=== PATIENT | male | born 2000 | race Caucasian/White ===

== ENCOUNTER 2019-03-03 22:30 | Emergency (ER) | payer OTHER ==
--- OUTSIDE RECORDS SUMMARY | 2019-03-03 22:47 | XMS REPORT | Continuity of Care Document ---
:2000 External Reference #:[id number] Author Name Eris Soliz M.D. Address [address] [place] [address] Care Team Providers Name Role Phone Eris Soliz M.D. Primary Care Physician Unavailable Payers Date Identification Numbers Payment Provider Subscriber Effective: 2013 Policy Number: [id number] [facility] Wei Gibbons PayID: [id number] [address] [place] [address] Problems Description No Active Problems Family History Date Family Member(s) Observation Comments Father No Current Problems Mother Hypertension Mother Ovarian Cyst Mother Breast Cancer First Brother Hypertension Grandfather Hypertension Grandfather due to Heart Attack () Grandmother Hypertension Grandmother Diabetes Paternal Grandfather due to Liver Disease () Paternal Grandfather due to Alcoholism () Paternal Grandmother Seizure Disorder Maternal Grandfather due to Heart Attack () Maternal Grandfather due to Hypertension () Maternal Grandmother Hypertension Maternal Grandmother Diabetes Paternal Uncles Hypertension Paternal Uncles Unknown Maternal Uncles Diabetes Maternal Uncles Kidney Disease Aunt Hypertension Paternal Aunts No Current Problems Maternal Aunts Hypertension First Paternal Cousin No Current Problems Second Paternal Cousin No Current Problems First Maternal Cousin No Current Problems Second Maternal Cousin No Current Problems Third Maternal Cousin Oxcws-3-Avrjlrxjpve Deficiency Fourth Maternal Cousin Ksvgw-2-Gjbzflbbbun Deficiency Social History Type Date Description Comments Sex Unknown Lives With Grandmother Tobacco Use Start: Unknown Never Smoked Cigarettes ETOH Use Rarely consumes alcohol Tobacco Use Start: Unknown Patient has never smoked Recreational Drug Use Regularly uses 1-2 times a a week Marijuana Tobacco Use Start: Unknown Exposure To Second-Hand Smoke Smoking Status Reviewed: 12/22/18 Exposure To Second-Hand Smoke Currently Active Patient is currently sexually active Condom Use Always # Partners in a Lifetime 1 Allergies, Adverse Reactions, Alerts Description No Known Drug Allergies Medications Active Medications SIG Qnty Indications Ordering Provider Date No Active Medications Unknown 10/10/2015 History Medications Azithromycin take 2 tabs by 6tabs 482.9 Elda Bird NP 10/31/2014 - 250mg mouth today; then 10/09/2015 Tablets 1 tab by mouth daily for the next 4 days Proair HFA 2 puffs q4-6 1units 482.9 Elda Bird NP 10/31/2014 - 108(90Base) hours as needed 10/09/2015 mcg/Act Aerosol for wheeze Aerochamber Plus please dispense 1units 482.9 Elda Bird NP 10/31/2014 - Misc one spacer to use 10/09/2015 with inhaler- No Active Medications Unknown 10/04/2014 - 10/31/2014 Medications Administered in Office Medication SIG Qnty Indications Ordering Provider Date Immunization Administration Nursing 07/26/2018 Single Or Combination Injection Immunization Administration Nursing 10/06/2017 Single Or Combination Injection Immunization Administration Eris Soliz M.D. 10/13/2016 Single Or Combination Injection Immunization Adminstration 2+ JAMES Sharif 10/10/2015 Single Or Combination Injection Immunization Administration JAMES Sharif 10/10/2015 Single Or Combination Injection Immunization Administration Nursing 07/12/2014 Single Or Combination Injection Immunizations CPT Code Status Date Vaccine Lot # [id number] Given 07/26/2018 Flu Quadrivalent [id number] 32994 Given 10/06/2017 Flu Quadrivalent [id number] 09777 Given 10/13/2016 Flu Quadrivalent [id number] 86184 Given 10/10/2015 Menactra [id number] 71954 Given 10/10/2015 Flu Quadrivalent [id number] 84850 Given 07/12/2014 Flu Quadrivalent [id number] 84813 Given 08/31/2012 Influenza Virus Vaccine, Split Virus, 6-35 Months Age Intramuscul 90424 Given 08/31/2012 Gardasil 07422 Given 10/13/2011 Gardasil 60559 Given 08/26/2011 Gardasil 88637 Given 08/26/2011 Influenza Virus Vaccine Intranasal 66150 Given 06/11/2010 Influenza Virus Vaccine Intranasal 97498 Given 07/17/2009 Tdap 98470 Given 06/20/2009 Varicella (Chicken Pox) Vaccine 68172 Given 06/20/2009 Influenza Virus Vaccine Intranasal 43609 Given 07/17/2008 Menactra 97128 Given 07/17/2008 Influenza Virus Vaccine Intranasal 66092 Given 07/17/2008 Hepatitis A Pediatric 69153 Given 08/12/2007 Influenza Virus Vaccine, Split Virus, 6-35 Months Age Intramuscul 43963 Given 07/12/2007 Hepatitis A Pediatric 43105 Given 07/12/2007 Influenza Virus Vaccine, Split Virus, 6-35 Months Age Intramuscul 95885 Given 06/10/2004 Polio Injectable 82213 Given 06/10/2004 MMR Vaccine, Live, For Subcutaneous Use 71127 Given 06/10/2004 DTaP Vaccine Younger Than 7 86652 Given 04/08/2000 DTaP Vaccine Younger Than 7 92455 Given 04/08/2000 Hib Vaccine 99355 Given 01/09/2000 Varicella (Chicken Pox) Vaccine 56260 Given 01/09/2000 Polio Injectable 16841 Given 01/09/2000 MMR Vaccine, Live, For Subcutaneous Use 09049 Given 07/09/1999 Hib Vaccine 05215 Given 07/09/1999 DTaP Vaccine Younger Than 7 22848 Given 07/09/1999 Hepatitis B Vaccine Pediatric/Adolescent 43785 Given 03/21/1999 Polio Injectable 96200 Given 03/21/1999 DTaP Vaccine Younger Than 7 02460 Given 03/21/1999 Hib Vaccine 74862 Given 01/20/1999 Polio Injectable 59083 Given 01/20/1999 DTaP Vaccine Younger Than 7 29228 Given 01/20/1999 Hib Vaccine 88693 Given 2000 Hepatitis B Vaccine Pediatric/Adolescent 72626 Given 1998 Hepatitis B Vaccine Pediatric/Adolescent Vital Signs Date Vital Result Comment 02/28/2019 10:43am Body Temperature 98.8 F Heart Rate 100 /min Respiratory Rate 20 /min BP Systolic 120 mmHg BP Diastolic 70 mmHg Weight 233.00 lb Weight 105.689 kg 12/22/2018 11:27am Body Temperature 98.5 F Heart Rate 65 /min Respiratory Rate 12 /min BP Systolic 147 mmHg BP Diastolic 84 mmHg Weight 234.69 lb Weight 106.454 kg Height 74.5 inches 6'2.50" BMI (Body Mass Index) 29.7 kg/m2 10/19/2018 9:10am Body Temperature 98.7 F Heart Rate 68 /min Respiratory Rate 14 /min BP Systolic 140 mmHg manual 124/82 BP Diastolic 78 mmHg manual 124/82 Weight 239.62 lb Weight 108.694 kg Height 74.5 inches 6'2.50" BMI (Body Mass Index) 30.4 kg/m2 Body Mass Index Percentile 95 % Height Percentile 96 % Weight Percentile >9711/10/2017 11:28am Body Temperature 97.5 F Heart Rate 78 /min Respiratory Rate 18 /min BP Systolic 138 mmHg BP Diastolic 70 mmHg Weight 230.00 lb Weight 104.328 kg Weight Percentile >9710/19/2017 9:31am Body Temperature 98.8 F Heart Rate 74 /min Respiratory Rate 16 /min BP Systolic 137 mmHg BP Diastolic 88 mmHg BP Systolic Recheck 138 mmHg BP Diastolic Recheck 83 mmHg Blood Pressure Percentile 85 % Weight 225.75 lb Weight 102.400 kg Height 74 inches 6'2" BMI (Body Mass Index) 29.0 kg/m2 Body Mass Index Percentile 94 % Height Percentile 95 % Weight Percentile >9705/20/2017 9:13am Body Temperature 97.6 F Heart Rate 88 /min Respiratory Rate 18 /min BP Systolic 140 mmHg BP Diastolic 76 mmHg Blood Pressure Percentile 0 % Weight 229.25 lb Weight 103.988 kg Weight Percentile >9704/14/2017 8:58am Body Temperature 98.7 F Heart Rate 76 /min Respiratory Rate 14 /min BP Systolic 148 mmHg BP Diastolic 87 mmHg BP Systolic Recheck 140 mmHg BP Diastolic Recheck 92 mmHg Blood Pressure Percentile 0 % Weight 225.00 lb Weight 102.060 kg Weight Percentile >9703/09/2017 8:21am Body Temperature 98.6 F Heart Rate 62 /min Respiratory Rate 12 /min BP Systolic 142 mmHg BP Diastolic 89 mmHg BP Systolic Recheck 134 mmHg BP Diastolic Recheck 80 mmHg Blood Pressure Percentile 94 % Weight 233.00 lb Weight 105.689 kg Height 74 inches 6'2" BMI (Body Mass Index) 29.9 kg/m2 Body Mass Index Percentile 96 % Height Percentile 95 % Weight Percentile >9702/17/2017 9:32am Body Temperature 98.2 F Heart Rate 58 /min Respiratory Rate 12 /min BP Systolic 146 mmHg Right Arm Manual BP Diastolic 80 mmHg Right Arm Manual BP Systolic Recheck 140 mmHg Left Arm Manual BP Diastolic Recheck 86 mmHg Left Arm Manual Blood Pressure Percentile 0 % Weight 231.19 lb Weight 104.867 kg Weight Percentile >97th 01/13/2017 10:44am Body Temperature 98.2 F Heart Rate 67 /min Respiratory Rate 12 /min BP Systolic 138 mmHg BP Diastolic 86 mmHg Blood Pressure Percentile 0 % Weight 230.38 lb Weight 104.498 kg Height 74 inches 6'2" BMI (Body Mass Index) 29.6 kg/m2 Body Mass Index Percentile 96 % Height Percentile 95 % Weight Percentile >97th 10/13/2016 9:31am Body Temperature 98.1 F Heart Rate 83 /min Respiratory Rate 14 /min BP Systolic 142 mmHg BP Diastolic 81 mmHg BP Systolic Recheck 136 mmHg BP Diastolic Recheck 80 mmHg Blood Pressure Percentile 95 % Weight 226.56 lb Weight 102.769 kg Height 74 inches 6'2" BMI (Body Mass Index) 29.1 kg/m2 Body Mass Index Percentile 95 % Height Percentile 95 % Weight Percentile >97th 10/10/2015 10:09am Body Temperature 98.0 F Heart Rate 82 /min Respiratory Rate 12 /min BP Systolic 137 mmHg BP Diastolic 82 mmHg Blood Pressure Percentile 91 % Weight 221.50 lb Weight 100.472 kg Height 73.5 inches 6'1.50" BMI (Body Mass Index) 28.8 kg/m2 Body Mass Index Percentile 96 % Height Percentile 95 % Weight Percentile >97th 09/11/2015 12:00am Body Temperature 99.7 F Heart Rate 103 /min Respiratory Rate 20 /min BP Systolic 137 mmHg BP Diastolic 67 mmHg Weight 213.00 lb Weight 96.615 kg O2 % BldC Oximetry 98 % 11/02/2014 10:10am Body Temperature 98.6 F Heart Rate 80 /min Respiratory Rate 16 /min BP Systolic 130 mmHg BP Diastolic 70 mmHg Blood Pressure Percentile 82 % Weight 200.50 lb Weight 90.947 kg Height 73 inches 6'1" BMI (Body Mass Index) 26.4 kg/m2 Body Mass Index Percentile 93 % O2 % BldC Oximetry 99 % Height Percentile 95 % Weight Percentile >97th 10/31/2014 2:42pm Body Temperature 99.8 F Heart Rate 88 /min Respiratory Rate 20 /min BP Systolic 150 mmHg done x2 BP Diastolic 64 mmHg done x2 BP Systolic Recheck 140 mmHg BP Diastolic Recheck 68 mmHg Blood Pressure Percentile 99 % Weight 204.12 lb Weight 92.591 kg Height 73 inches 6'1" BMI (Body Mass Index) 26.9 kg/m2 Body Mass Index Percentile 94 % Height Percentile 95 % Weight Percentile >97th 10/04/2014 1:55pm Body Temperature 98.7 F Heart Rate 92 /min Respiratory Rate 16 /min BP Systolic 134 mmHg BP Diastolic 81 mmHg Blood Pressure Percentile 90 % Weight 202.69 lb Weight 91.939 kg Height 73 inches 6'1" BMI (Body Mass Index) 26.7 kg/m2 Body Mass Index Percentile 94 % Height Percentile 96 % Weight Percentile >97th 10/04/2013 11:00am Heart Rate 82 /min Respiratory Rate 14 /min BP Systolic 128 mmHg BP Diastolic 68 mmHg Weight 181.75 lb Weight 82.440 kg Height 72.25 inches 10/12/2012 11:00am Body Temperature 96.8 F Heart Rate 76 /min Respiratory Rate 18 /min BP Systolic 102 mmHg BP Diastolic 72 mmHg Weight 156.00 lb Weight 70.760 kg 08/31/2012 11:00am Body Temperature 99.2 F Heart Rate 72 /min Respiratory Rate 20 /min BP Systolic 106 mmHg BP Diastolic 78 mmHg Weight 146.00 lb Weight 66.224 kg Height 68.25 inches 08/22/2012 11:00am Heart Rate 70 /min Respiratory Rate 20 /min BP Systolic 108 mmHg BP Diastolic 70 mmHg Weight 150.25 lb Weight 68.152 kg 08/26/2011 11:00am Heart Rate 70 /min Respiratory Rate 14 /min BP Systolic 130 mmHg BP Diastolic 78 mmHg Weight 137.00 lb Weight 62.142 kg Height 65.5 inches 11/19/2010 11:00am Heart Rate 102 /min Respiratory Rate 18 /min BP Systolic 110 mmHg BP Diastolic 70 mmHg Weight 120.38 lb Weight 54.599 kg 07/30/2010 11:00am Heart Rate 78 /min Respiratory Rate 16 /min BP Systolic 118 mmHg BP Diastolic 78 mmHg Weight 116.38 lb Weight 52.798 kg Height 62.75 inches 06/11/2010 12:00pm Heart Rate 90 /min Respiratory Rate 16 /min BP Systolic 126 mmHg BP Diastolic 80 mmHg Weight 117.94 lb Weight 53.501 kg Height 62.25 inches 07/17/2009 11:00am Heart Rate 82 /min Respiratory Rate 16 /min BP Systolic 120 mmHg BP Diastolic 80 mmHg Weight 94.81 lb Weight 43.001 kg Height 60.25 inches 06/20/2009 12:00pm Heart Rate 88 /min Respiratory Rate 24 /min BP Systolic 120 mmHg BP Diastolic 76 mmHg Weight 94.75 lb Weight 42.978 kg 08/14/2008 11:00am Heart Rate 104 /min Respiratory Rate 12 /min BP Systolic 120 mmHg BP Diastolic 60 mmHg Weight 84.75 lb Weight 38.442 kg 07/17/2008 11:00am Heart Rate 92 /min Respiratory Rate 18 /min BP Systolic 108 mmHg BP Diastolic 74 mmHg Weight 78.75 lb Weight 35.720 kg Height 58 inches 03/01/2008 12:00pm Heart Rate 96 /min Respiratory Rate 20 /min BP Systolic 100 mmHg BP Diastolic 60 mmHg Weight 82.50 lb Weight 37.421 kg 02/21/2008 12:00pm Heart Rate 88 /min Respiratory Rate 16 /min BP Systolic 100 mmHg BP Diastolic 64 mmHg Weight 84.50 lb Weight 38.329 kg 07/12/2007 12:00pm Heart Rate 72 /min Respiratory Rate 12 /min BP Systolic 90 mmHg BP Diastolic 60 mmHg Weight 73.50 lb Weight 33.339 kg Height 56 inches 06/30/2006 12:00pm Heart Rate 88 /min Respiratory Rate 16 /min BP Systolic 102 mmHg BP Diastolic 58 mmHg Weight 65.50 lb Weight 29.710 kg Height 53 inches Results Test Date Facility Test Result H/L Range Note .Urinalysis DIP 02/28/2019 [facility] Ua Color yellow Only [address] [place] [address] [phone] Ua Clarity clear Ua Glucose negative Ua Bilirubin negative Ua Ketones negative Ua Specific [place] 1.010 Ua Blood Qual negative Ua PH Test Strip 6.0 Ua Protein negative Ua Urobilinogen negative Ua Nitrate negative Ua Leukocytes negative Laboratory test 02/19/2017 [facility] Alpha 1 92 mg/dL Abnormal 100 - [address] Antitrypsin A1a [address] [place] [address] Hepatitis C Antibody Nonreactive N Nonreactive Hepatitis B Surface Ag Nonreactive N Nonreactive Liver Function Panel 02/19/2017 [facility] Total Protein 7.3 g/ dL N 6.4-8.[address] [place] [address] Albumin 4.8 g/dL N 3.2-5.2 Globulin 2.5 g/dL N 2-4 Albumin/Globulin Ratio 1.9 N 1-3 Total Bilirubin 0.50 mg/dL N 0.2-1.0 Direct Bilirubin 0.10 mg/dL N 0.03-0.18 Indirect Bilirubin 0.4 mg/dL N 0.3-1.0 Alkaline Phosphatase 92 U/L N 34-104 Alt 87 U/L High 7- Ast 45 U/L High 13-39 Lipid Profile 01/14/2017 [facility] Triglycerides 356 mg/dL N 2 (Trig/Chol/HDL) [address] [place] [address] Cholesterol 202 mg/dL N 3 HDL Cholesterol 32.6 mg/dL N 4 LDL Cholesterol 98 mg/dL N 5 Comp Metabolic Panel 01/14/2017 [facility] Sodium 137 mmol/L N 133-145 [address] [place] [address] Potassium 4.5 mmol/L N 3.5-5.0 Chloride 103 mmol/L N 101-111 Co2 Carbon Dioxide 29 mmol/L N 22-32 Anion Gap 5 mmol/L N 2-11 Glucose 96 mg/dL N 70-100 Blood Urea Nitrogen 9 mg/dL N 6-24 Creatinine 0.84 mg/dL N 0.67-1.17 BUN/Creatinine Ratio 10.7 N 8-20 Calcium 10.3 mg/dL N 8.6-10.3 Total Protein 7.4 g/dL N 6.4-8.9 Albumin 4.9 g/dL N 3.2-5.2 Globulin 2.5 g/dL N 2-4 Albumin/Globulin Ratio 2.0 N 1-3 Total Bilirubin 0.50 mg/dL N 0.2-1.0 Alkaline Phosphatase 92 U/L N 34-104 Alt 132 U/L High 7 Ast 74 U/L High 13-39 Egfr Non- 119.0 N >60 Egfr 153.1 N >60 6 Laboratory test 01/14/2017 [facility] Free T4 (Free 0.67 ng/dL N 0.61-1.12 finding [address] [facility] [place]roxine) [place] [address] TSH (Thyroid Stim Horm) 3.20 mcIU/mL N 0.34-5.60 Renin 0.7 ng/mL/h N 7 Order 01/13/2017 [facility] EKG <pending> [address] [place] [address] [phone] Laboratory 09/11/2015 [facility] Rapid Strep SEE RESULT 8 test finding [address] [place] [address] Laboratory 09/11/2015 [facility] Rapid Strep POSITIVE Abnormal Negative 9 test finding [address] [place] [address] Order 11/02/2014 [facility] Oximetry - 99 Pulse or Ear Laboratory 11/01/2014 [facility] .Quick Strep negative test finding [address] [place] [address] [phone] .Culture Throat negative Order 10/31/2014 [facility] Nebulizer/Inhaler Training complete Order 10/31/2014 [facility] Nebulizer Treatment complete Oximetry - Pulse or Ear 100 Laboratory test 08/22/2012 [facility] Influenza Virus negative finding Culture (Rapid) 1 Test Performed by: [address] [address] 2 Desirable <150 Borderline high 150-199 High 200-499 Very High >500 3 Desirable <200 Borderline high 200-239 High >239 4 Low <40 Desirable: 40-60 High: >60 5 Desirable: <100 mg/dL Near Optimal: 100-129 mg/dL Borderline High: 130-159 mg/dL High: 160-189 mg/dL Very High: >189 mg/dL 6 Because ethnic data is not always readily available, this report includes an eGFR for both -Americans and non- Americans. The National Kidney Disease Education Program (NKDEP) does not endorse the use of the MDRD equation for patients that are not between the ages of 18 and 70, are , have extremes of body size, muscle mass, or nutritional status, or are non- or non-. According to the National Kidney Foundation, irrespective of diagnosis, the stage of the disease is based on the level of kidney function: Stage Description GFR(mL/min/1.73 m(2)) 1 Kidney damage with normal or decreased GFR 90 2 Kidney damage with mild decrease in GFR 60-89 3 Moderate decrease in GFR 30-59 4 Severe decrease in GFR 15-29 5 Kidney failure <15 (or dialysis) 7 REFERENCE VALUE (Peripheral vein specimen) Na-deplete, upright: Mean: 10.8 Range: 2.9-24 Na-replete, upright: Mean: 1.9 Range: < or=0.6-4.3 ADDITIONAL INFORMATION Testing performed by Liquid Chromatography-Tandem Mass Spectrometry (LC-MS/MS). This test was developed and its performance characteristics determined by [facility] in a manner consistent with CLIA requirements. This test has not been cleared or approved by the U.S. Food and Drug Administration. Test Performed by: [facility] [employer] [address] [address] 8 SEE RESULT BELOW Name: GIBBONSWEI Haley : [address]: Tim Mccollum III Acct: [id number] Unit: [id number] AGE: 14 Location: [facility] Re09/11/15 SEX: M Status: REG ER SPEC: [id number] BRANDEN: 09/11/[address]: Tim Mccollum III, MD REQ: [id number] RECD: 09/11/15 STATUS: COMP [facility] DR: Eris Snedeker MD _ SOURCE: THROAT SPDESC: ORDERED: Strep A Request Procedure Result Reported Site Rapid Strep A Request Final 09/11/15- 1850 ML Specimen received for Rapid Strep A Molecular testing * ML - MAIN LAB ([facility]) . END OF REPORT * ML=Testing performed at Main Lab DEPARTMENT OF PATHOLOGY, [address] [place] [address] Rivas Camargo M.D. Director [facility] # [id number] 9 Geological Aide: [id number] SHIVAM HILL The utility aide and regulatory agencies both recommend that a throat culture for beta strep be performed if a Rapid Group A Strep assay yields a negative result. Therefore a culture will be automatically performed on all negative samples. Procedures Date Code Description Status 10/19/2018 21165 Vision Screening Completed 10/19/2018 49511 Admin Patient Focused Health Risk Assessment Instrument Completed 10/19/2018 16648 Brief Emotional/Behav Assessment W/ Scoring Doc Per Completed Standard Inst 10/19/2018 42731 Hearing Screen, Pure Tone, Air Completed 10/19/2017 46513 Vision Screening Completed 10/19/2017 69097 Admin Patient Focused Health Risk Assessment Instrument Completed 10/19/2017 21660 Brief Emotional/Behav Assessment W/ Scoring Doc Per Completed Standard Inst 10/19/2017 35186 Hearing Screen, Pure Tone, Air Completed 10/13/2016 03084 Collection Of Capillary Blood Specimen Completed 10/13/2016 75872 Hearing Screen, Pure Tone, Air Completed 10/13/2016 66725 Admin Patient Focused Health Risk Assessment Instrument Completed 10/13/2016 79246 Vision Screening Completed 10/10/2015 10422 Vision Screening Completed 10/10/2015 31757 Hearing Screen, Pure Tone, Air Completed 11/02/2014 71182 Pulse Oximetry Completed 10/31/2014 34345 Pulse Oximetry Completed 10/31/2014 94981 Inhaler/Nebulizer Training Completed 10/04/2014 09493 Vision Screening Completed 10/04/2014 60163 Hearing Screen, Pure Tone, Air Completed Encounters Type Date Location Provider Dx Diagnosis Office Visit 02/28/2019 10:15a [facility] LGORY Jimenes R36.1 Hematospermia N50.89 Other specified disorders of the male genital organs Office Visit 12/22/2018 11:00a [facility] Noelle Phan K08.89 Other specified RPA-C disorders of teeth and supporting structures Office Visit 10/19/2018 9:30a [facility] GLORY Jimenes Z00.00 Encntr for general adult medical exam w/o abnormal findings E66.3 Overweight Z71.89 Other specified counseling Z13.89 Encounter for screening for other disorder Office Visit 11/10/2017 11:45a [facility] Elda Bird NP K64.1 Second degree hemorrhoids M54.5 Low back pain Office Visit 10/19/2017 9:15a 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 deficiency K76.0 Fatty (change of) liver, not elsewhere classified E66.3 Overweight E78.2 Mixed hyperlipidemia R03.0 Elevated blood-pressure reading, w/o diagnosis of htn Office Visit 02/17/2017 9:30a [facility] R03.0 Elevated Leticia FayeDSameer blood-pressure reading, w/o diagnosis of htn E78.2 Mixed hyperlipidemia R74.8 Abnormal levels of other serum enzymes Office Visit 01/13/2017 11:15a [facility] R03.0 Elevated Laura Faye blood-pressure reading, w/o diagnosis of htn E66.3 Overweight Office Visit 10/13/2016 9:15a [facility] Eris Soliz, Z00.121 Encounter for M.D. routine child health exam w abnormal findings R03.0 Elevated blood-pressure reading, w/o diagnosis of htn Office Visit 10/10/2015 10:15a [facility] Noelle Phan, Z00.121 Encounter for RPA-C routine child health exam w abnormal findings H54.2 Low vision, both eyes Office Visit 11/02/2014 10:00a [facility] Noelle Phan, 482.9 Pneumonia Due To RPA-C Bacterial Infection Unspec Office Visit 10/31/2014 3:00p [facility] Elda Bird NP 786.2 Cough 462 Pharyngitis Acute 482.9 Pneumonia Due To Bacterial Infection Unspec Office Visit 10/04/2014 1:45p [facility] Riaz Landrum M.D. V20.2 Routine Infant Or Child Health Check v65.42 Counseling On Substance Use & Abuse Plan of Treatment Future Appointment(s):10/23/2019 1:45 pm - Eris Soliz M.D. at [facility]02/28/2019 - Yusef Yen, PAR36.1 MfbrvsdzrnmxhZ56.89 Other specified disorders of the male genital organsNew Xrays:Ultrasound Testicles-Inguinal, Scheduled: 03/01/19
[2019-03-04] MEDS ORDERED: Lidocaine 1%** 5 ML VIAL IM ONE (01:37)
[2019-03-04] MEDS ORDERED: cefTRIAXone VIAL(*) 250 MG VIAL IM ONE (01:37)
[2019-03-04] MEDS ORDERED: Azithromycin TAB* 250 MG PO ONE (01:38)
--- NOTE | 2019-03-04 01:45 | ED ---
GI/ HPI - HPI Summary HPI Summary: Pt is a 18 y/o M presenting to the ED with a chief complaint of burning with urination onset 03/03/19. He recently went to his physician for a lump in his testicles, who ordered an ultrasound. He also notes that his semen is brown. He denies penile discharge, abd pain, or edema of the testicles. He also states he uses a condom every time he has sex, and it is always with females. - History of Current Complaint Chief Complaint: EDUrogenitalProblems Time Seen by Provider: 03/04/19 01:31 Stated Complaint: UTI PER PT Hx Obtained From: Patient Onset/Duration: Started Hours Ago, Still Present Timing: Constant, Lasting Hours Severity: Moderate Current Severity: Moderate Pain Intensity: 7 Additional Locations for Males: Penis Pain Characteristics: Burning Associated Signs and Symptoms: Positive: UTI Symptoms. Negative: Abdominal Pain Additional Signs & Symptoms: Negative: Penile Discharge Aggravating Factor(s): Urination Alleviating Factor(s): Nothing - Allergy/Home Medications Allergies/Adverse Reactions: Allergies Allergy/AdvReac Type Severity Reaction Status Date / Time No Known Allergies Allergy Verified 09/11/15 18:02 PMH/Surg Hx/FS Hx/Imm Hx Previously Healthy: Yes Endocrine/Hematology History: Denies: Hx Diabetes Cardiovascular History: Denies: Hx Hypertension Infectious Disease History: No Infectious Disease History: Denies: Traveled Outside the [place] in Last 30 Days - Family History Known Family History: Negative: Cardiac Disease - Social History Alcohol Use: None Hx Substance Use: Yes Substance Use Type: Reports: Marijuana Substance Use Comment - Amount & Last Used: occasionally Hx Tobacco Use: No Smoking Status (MU): Never Smoked Tobacco Have You Smoked in the Last Year: No Review of Systems Negative: Abdominal Pain Positive: burning, other - brown semen, lump in testicle. Negative: discharge All Other Systems Reviewed And Are Negative: Yes Physical Exam - Summary Physical Exam Summary: Appearance: Well-appearing, Well-nourished, lying in bed comfortable Skin: Warm, dry, no obvious rash Eyes: sclera anicteric, no conjunctival pallor ENT: mucous membranes moist Neck: deferred Respiratory: No signs of respiratory distress Cardiovascular: Appears well perfused, pulses are nml Abdomen: deferred Musculoskeletal: Moving all 4 extremities without obvious discomfort Neurological: Awake and alert, mentation is normal, speech is fluent and appropriate Psychiatric: affect is normal, does not appear anxious or depressed Male : left varicocele, but no testicular masses on either side. No inguinal edema, no urethral discharge. Triage Information Reviewed: Yes Vital Signs On Initial Exam: Initial Vitals Temp Pulse Resp BP Pulse Ox 98.8 F 82 20 163/82 98 03/03/19 22:39 03/03/19 22:39 03/03/19 22:39 03/03/19 22:39 03/03/19 22:39 Vital Signs Reviewed: Yes Diagnostics - Vital Signs Vital Signs Temp Pulse Resp BP Pulse Ox 03/04/19 00:30 98.1 F 81 18 139/99 98 03/03/19 22:39 98.8 F 82 20 163/82 98 - Laboratory Lab Statement: Any lab studies that have been ordered have been reviewed, and results considered in the medical decision making process. GIGU Course/Dx - Course Course Of Treatment: Pt is a 18 y/o M presenting to the ED with a chief complaint of burning with urination onset 03/03/19. He denies penile discharge, abd pain, or edema of the testicles. He also states he uses a condom every time he has sex, and it is always with females. The pt's physical exam shows a L varicocele in the male portion, but there is no inguinal hernia or urethral discharge. I will be d/c'ing the pt with dx of urethritis, and instructions on taking his prescription at home. He is stable and agreeable with this plan. - Diagnoses Provider Diagnoses: Urethritis Discharge - Sign-Out/Discharge Documenting (check all that apply): Patient Departure Patient Received Moderate/Deep Sedation with Procedure: No - Discharge Plan Condition: Good Disposition: HOME Patient Education Materials: Nonspecific Urethritis in Men (ED) Referrals: Luciana Faye MD [Primary Care Provider] - (as scheduled) Additional Instructions: Your ultrasound showed a varicocele on the left, a common abnormality of the testicle that is usually not a big problem. I would have your PCP address this and consider a referral to a urologist if necessary. - Billing Disposition and Condition Condition: GOOD Disposition: Home - Attestation Statements Document Initiated by Scribe: Yes Documenting Scribe: Brianda Pérez Provider For Whom Scribe is Documenting (Include Credential): Leif Fry MD. Scribe Attestation: I, Brianda Pérez, scribed for Leif Fry MD. on 03/07/19 at 0748. Scribe Documentation Reviewed: Yes Provider Attestation: The documentation as recorded by the scribe, Brianda Pérez accurately reflects the service I personally performed and the decisions made by me, Leif Fry MD. Status of Scribe Document: Viewed
[2019-03-04 01:49] LABS: Urine Appearance Clear; Urine Bilirubin Negative (Negative); Urine Blood Negative (Negative); Urine Color Yellow; Urine Glucose Negative (Negative); Urine Ketones Negative (Negative); Urine Nitrite Negative (Negative); Urine Protein Negative (Negative); Urine Specific Gravity 1.024 (1.010-1.030); Urine Urobilinogen Negative (Negative)
[2019-03-04 02:08] VITALS: BP 146/82
--- NOTE | 2019-03-04 20:15 | PN ---
Progress Note - Progress Note Date of Service: 03/04/19 Note: Patient called stating his prescription medications had not made it to the pharmacy. Discussed patient with Dr. Bucio who stated patient had been treated with Rocephin and azithromycin here in the ED. No further treatment was necessary. Patient was advised he did not require prescription antibiotics. Patient stated he understood.
[2019-03-06 14:11] LABS: Neisseria gonorrhoeae (GC) RNA Negative (Negative)
== END 2019-03-04 02:07 | disposition home or self-care (01) ==
LOC: ED 22:30
DX: N34.2 Other urethritis (principal); N50.9 Disorder of male genital organs, unspecified
CPT/HCPCS: 81003; 87491; 87591; 96372; 99282; A9270-GY; J0696

== ENCOUNTER 2019-06-09 07:36 | Emergency (ER) | payer OTHER ==
[2019-06-09] MEDS ORDERED: Ketorolac INJ* 30 MG/ML 1 ML VIAL IV PUSH ONE (07:57)
[2019-06-09] MEDS ORDERED: NS 0.9% 1000 ML** 1,000 ML IV ONE (08:12)
[2019-06-09 08:16] LABS: Urine Bacteria Absent (Absent); Urine Red Blood Cell Absent (Absent); Urine Squamous Epithelial Cell Present (Absent); Urine White Blood Cell Trace(0-5/hpf) (Absent)
[2019-06-09 08:17] LABS: Urine Appearance Cloudy; Urine Bilirubin Negative (Negative); Urine Blood Negative (Negative); Urine Color Amber; Urine Glucose Negative (Negative); Urine Ketones Negative (Negative); Urine Nitrite Negative (Negative); Urine Protein Negative (Negative); Urine Specific Gravity 1.024 (1.010-1.030); Urine Urobilinogen Negative (Negative)
[2019-06-09 08:22] LABS: ABS Lymphocytes 0.5 10^3/ul (1.0-4.8); ABS Monocytes 0.7 10^3/ul (0-0.8); ABS Neutrophils 5.1 10^3/ul (1.5-7.7); Eosinophil % 0.3 %; Hematocrit 45 % (42-52); Hemoglobin 15.9 g/dL (14.0-18.0); Lymphocyte % 8.5 %; Mean Corpuscular HGB Conc 35 g/dL (31-36); Mean Corpuscular Hemoglobin 29 pg (27-31); Mean Corpuscular Volume 81 fL (80-94); Nucleated Red Blood Cells % 0.1; Red Blood Count 5.58 10^6 /uL (4.18-5.48); Red Cell Distribution Width 13 % (10-15); White Blood Count 6.4 10^3/uL (3.5-10.8)
[2019-06-09 08:33] LABS: Albumin 4.4 g/dL (3.2-5.2); Albumin/Globulin Ratio 1.5 (1-3); BUN/Creatinine Ratio 10.4 (8-20); C Reactive Protein 139.26 mg/L (<8.01); Calcium 9.4 mg/dL (8.6-10.3); EGFR African American 120.8 (>60); EGFR Non-African American 99.9 (>60); Globulin 2.9 g/dL (2-4); Potassium 4.1 mmol/L (3.5-5.0); Total Bilirubin 1.2 mg/dL (0.2-1.0); Total Protein 7.3 g/dL (6.4-8.9)
--- NOTE | 2019-06-09 08:41 | ED ---
Back Pain - HPI Summary HPI Summary: 18 year old male presenting to ED with a chief complaint of back pain initially onset yesterday. The back pain is described as aching and rated a 7/10 in severity. The pain is localized in the lower back and does not radiate. Patient reports nausea, vomiting, a subjective fever beginning a few days ago, and some burning with urination. He denies pain in his testicles, or any recent heavy lifting/fall. PMHx of hernia as a child. - History of Current Complaint Chief Complaint: EDBackInjuryPain Stated Complaint: VOMITING/FEVER/BACK PAIN PER PT Time Seen by Provider: 06/09/19 07:50 Hx Obtained From: Patient Onset/Duration: Gradual Onset, Lasting Days, Still Present Onset/Duration: Started Days Ago, Still Present Timing: Constant Back Pain Location: Is Discrete @ - Lower back Severity Initially: Moderate Severity Currently: Severe Pain Intensity: 7 Pain Scale Used: 0-10 Numeric Character: Aching Associated Signs And Symptoms: Positive: Fever - Allergies/Home Medications Allergies/Adverse Reactions: Allergies Allergy/AdvReac Type Severity Reaction Status Date / Time No Known Allergies Allergy Verified 06/09/19 07:48 Home Medications: Home Medications NK [No Home Medications Reported] 06/09/19 [History Confirmed 06/09/19] PMH/Surg Hx/FS Hx/Imm Hx Previously Healthy: Yes Endocrine/Hematology History: Denies: Hx Diabetes Cardiovascular History: Denies: Hx Hypertension GI History: Reports: Other GI Disorders - hernia - Surgical History Surgery Procedure, Year, and Place: hernia as child Infectious Disease History: No Infectious Disease History: Denies: Traveled Outside the [place] in Last 30 Days - Family History Known Family History: Negative: Hypertension, Diabetes - Social History Alcohol Use: None Hx Substance Use: Yes Substance Use Type: Reports: Marijuana Substance Use Comment - Amount & Last Used: occasionally Hx Tobacco Use: No Smoking Status (MU): Never Smoked Tobacco Have You Smoked in the Last Year: No Review of Systems Positive: Fever - subjective Positive: Vomiting, Nausea Positive: burning. Negative: pain - in testicles Positive: Myalgia - in the back All Other Systems Reviewed And Are Negative: Yes Physical Exam - Summary Physical Exam Summary: GENERAL NORMAL EXAM: VITAL SIGNS: Reviewed. GENERAL: Patient is a well-developed and nourished male who is lying comfortable in the stretcher. Patient is not in any acute respiratory distress. HEAD AND FACE: No signs of trauma. No ecchymosis, hematomas or skull depressions. No sinus tenderness. EYES: PERRLA, EOMI x 2, No injected conjunctiva, no nystagmus. EARS: Hearing grossly intact. Ear canals and tympanic membranes are within normal limits. MOUTH: Oropharynx within normal limits. NECK: Supple, trachea is midline, no adenopathy, no JVD, no carotid bruit, no c- spine tenderness, neck with full ROM. CHEST: Symmetric, no tenderness at palpation. LUNGS: Clear to auscultation bilaterally. No wheezing or crackles. CVS: Regular rate and rhythm, S1 and S2 present, no murmurs or gallops appreciated. ABDOMEN: Soft, tenderness in flanks bilaterally. No signs of distention. No rebound, no guarding, and no masses palpated. Bowel sounds are normal. EXTREMITIES: FROM in all major joints, no edema, no cyanosis or clubbing. NEURO: Alert and oriented x 3. No acute neurological deficits. Speech is normal and follows commands. SKIN: Clammy. Triage Information Reviewed: Yes Vital Signs On Initial Exam: Initial Vitals Temp Pulse Resp BP Pulse Ox 97.9 F 100 20 127/81 96 06/09/19 07:43 06/09/19 07:43 06/09/19 07:43 06/09/19 07:43 06/09/19 07:43 Vital Signs Reviewed: Yes Diagnostics - Vital Signs Vital Signs Temp Pulse Resp BP Pulse Ox 06/09/19 08:09 89 116/81 96 06/09/19 08:07 89 97 06/09/19 07:43 97.9 F 100 20 127/81 96 - Laboratory Lab Results: Lab Results 06/09/19 06/09/19 06/09/19 Range/Units 08:02 08:08 08:08 WBC 6.4 (3.5-10.8) 10^3/uL RBC 5.58 H (4.18-5.48) 10^6 /uL Hgb 15.9 (14.0-18.0) g/dL Hct 45 (42-52) % MCV 81 (80-94) fL MCH 29 (27-31) pg MCHC 35 (31-36) g/dL RDW 13 (10-15) % Plt Count Pending MPV Pending Neut % (Auto) 80.5 % Lymph % (Auto) 8.5 % [place] % (Auto) 10.3 % Eos % (Auto) 0.3 % Baso % (Auto) 0.4 % Absolute Neuts (auto) 5.1 (1.5-7.7) 10^3/ul Absolute Lymphs (auto) 0.5 L (1.0-4.8) 10^3/ul Absolute Monos (auto) 0.7 (0-0.8) 10^3/ul Absolute Eos (auto) 0.0 (0-0.6) 10^3/ul Absolute Basos (auto) 0.0 (0-0.2) 10^3/ul Absolute Nucleated RBC 0.0 10^3/ul Nucleated RBC % 0.1 Sodium 130 L (135-145) mmol/L Potassium 4.1 (3.5-5.0) mmol/L Chloride 99 L (101-111) mmol/L Carbon Dioxide 25 (22-32) mmol/L Anion Gap 6 (2-11) mmol/L BUN 10 (6-24) mg/dL Creatinine 0.96 (0.67-1.17) mg/dL Est GFR ( Amer) 120.8 (>60) Est GFR (Non-Af Amer) 99.9 (>60) BUN/Creatinine Ratio 10.4 (8-20) Glucose 118 H (70-100) mg/dL Lactic Acid (0.5-2.0) mmol/L Calcium 9.4 (8.6-10.3) mg/dL Total Bilirubin 1.20 H (0.2-1.0) mg/dL AST 150 H (13-39) U/L ALT 263 H (7-52) U/L Alkaline Phosphatase 74 (34-104) U/L C-Reactive Protein 139.26 H (<8.01) mg/L Total Protein 7.3 (6.4-8.9) g/dL Albumin 4.4 (3.2-5.2) g/dL Globulin 2.9 (2-4) g/dL Albumin/Globulin Ratio 1.5 (1-3) Lipase 11 (11.0-82.0) U/L Urine Color [place] Urine Appearance Cloudy Urine pH 5.0 (5-9) Ur Specific [place] 1.024 (1.010-1.030) Urine Protein Negative (Negative) Urine Ketones Negative (Negative) Urine Blood Negative (Negative) Urine Nitrate Negative (Negative) Urine Bilirubin Negative (Negative) Urine Urobilinogen Negative (Negative) Ur Leukocyte Esterase Negative (Negative) Urine WBC (Auto) Trace(0-5/hpf) (Absent) Urine RBC (Auto) Absent (Absent) Ur Squamous Epith Cells Present A (Absent) Urine Bacteria Absent (Absent) Urine Glucose Negative (Negative) Urine Ascorbic Acid * A (Negative) 06/09/19 Range/Units 08:08 WBC (3.5-10.8) 10^3/uL RBC (4.18-5.48) 10^6 /uL Hgb (14.0-18.0) g/dL Hct (42-52) % MCV (80-94) fL MCH (27-31) pg MCHC (31-36) g/dL RDW (10-15) % Plt Count MPV Neut % (Auto) % Lymph % (Auto) % [place] % (Auto) % Eos % (Auto) % Baso % (Auto) % Absolute Neuts (auto) (1.5-7.7) 10^3/ul Absolute Lymphs (auto) (1.0-4.8) 10^3/ul Absolute Monos (auto) (0-0.8) 10^3/ul Absolute Eos (auto) (0-0.6) 10^3/ul Absolute Basos (auto) (0-0.2) 10^3/ul Absolute Nucleated RBC 10^3/ul Nucleated RBC % Sodium (135-145) mmol/L Potassium (3.5-5.0) mmol/L Chloride (101-111) mmol/L Carbon Dioxide (22-32) mmol/L Anion Gap (2-11) mmol/L BUN (6-24) mg/dL Creatinine (0.67-1.17) mg/dL Est GFR ( Amer) (>60) Est GFR (Non-Af Amer) (>60) BUN/Creatinine Ratio (8-20) Glucose (70-100) mg/dL Lactic Acid 0.7 (0.5-2.0) mmol/L Calcium (8.6-10.3) mg/dL Total Bilirubin (0.2-1.0) mg/dL AST (13-39) U/L ALT (7-52) U/L Alkaline Phosphatase (34-104) U/L C-Reactive Protein (<8.01) mg/L Total Protein (6.4-8.9) g/dL Albumin (3.2-5.2) g/dL Globulin (2-4) g/dL Albumin/Globulin Ratio (1-3) Lipase (11.0-82.0) U/L Urine Color Urine Appearance Urine pH (5-9) Ur Specific [place] (1.010-1.030) Urine Protein (Negative) Urine Ketones (Negative) Urine Blood (Negative) Urine Nitrate (Negative) Urine Bilirubin (Negative) Urine Urobilinogen (Negative) Ur Leukocyte Esterase (Negative) Urine WBC (Auto) (Absent) Urine RBC (Auto) (Absent) Ur Squamous Epith Cells (Absent) Urine Bacteria (Absent) Urine Glucose (Negative) Urine Ascorbic Acid (Negative) Result Diagrams: 06/09/19 08:08 06/09/19 08:08 Lab Statement: Any lab studies that have been ordered have been reviewed, and results considered in the medical decision making process. - CT Abd CT CT Interpretation Completed By: Radiologist Summary of CT Findings: Abdominal CT shows hepatomegaly with fatty infiltration of the liver. No hydronephrosis or nephrolithiasis. An ED physician has reviewed this report. - Ultrasound Abd US Ultrasound Interpretation Completed By: Radiologist Summary of Ultrasound Findings: Abdominal US shows hepatomegaly and hepatosteatosis. Negative for gallbladder pathology. ED physician has reviewed this report. Back Pain Course/Dx - Course Assessment/Plan: This patient is a 18-year-old male who presents to the emergency room with his mother with a chief complaint of having back pain and a recent episode of fever. The patient also reports some dysuria. Blood tests without a significant abnormality except for sodium 130, chloride 99, glucose 118, total bili is 1.2, AST is 150, AST 263, CRP is agitated and 39,urinalysis is negative for UTI. Abdominopelvic CT impression: Hepatomegaly with fatty liver infiltration, no hydronephrosis or nephrolithiasis. Patient has increased LFTs. Ultrasound of right upper quadrant ordered. Right upper quadrant ultrasound impression: Hepatomegaly and hepatic steatosis. Negative for gallbladder pathology. After medications patients symptoms are significantly improved. Patient is asymptomatic at this time. In the ED course the patient doesnt have any fever. The patient will be discharged home with follow up with primary care physician. The primary care physician will follow-up. The GC and chlamydia, Hepatitis panel is negative. I discussed all the findings and test results with the patient. Patient was instructed to return to the emergency room immediately if any of the symptoms return or worsen. They were given the possibility of an early abdominal pathology which was not detected at this time despite the physical exam and testing. They understand and agree. Abdominal exam before discharge: Soft, NT. No signs of distention. BS present. No rebound no guarding, and no masses palpated. Patient is alert and oriented and hemodynamically stable. Patient is to follow up with primary care physician in the next 2 to 3 days. Patient agrees and understands. - Diagnoses Provider Diagnoses: Back pain Discharge ED - Sign-Out/Discharge Documenting (check all that apply): Patient Departure Patient Received Moderate/Deep Sedation with Procedure: No - Discharge Plan Condition: Stable Disposition: HOME Patient Education Materials: Back Pain (ED) Forms: *Work Release Referrals: Jadon Gutiérrez MD [Primary Care Provider] - Additional Instructions: Follow up with your primary care provider in 2-3 days. Return to the emergency department if symptoms worsen. - Billing Disposition and Condition Condition: STABLE Disposition: Home - Attestation Statements Document Initiated by Ajay: Yes Documenting Scribe: Brianda Guadarrama Provider For Whom Ajay is Documenting (Include Credential): Dr. Reji Pena MD. Scribe Attestation: I, Brianda Guadarrama scribed for Dr. Reji Pena MD. on at 1121. Scribe Documentation Reviewed: Yes Provider Attestation: The documentation as recorded by the ajay, Brianda Guadarrama accurately reflects the service I personally performed and the decisions made by me, Dr. Reji Pean MD. Status of Scribe Document: Viewed
[2019-06-09 09:18] LABS: Mean Platelet Volume 7.7 fL (7.4-10.4); Platelet Count 189 10^3/uL (150-450)
[2019-06-09] MEDS ORDERED: Ondansetron INJ* 2 MG/ML VIAL IV ONE (09:47)
[2019-06-09] MEDS ORDERED: Naloxone* 0.4 MG/ML 1 ML VIAL IV PUSH ONE (09:47)
[2019-06-09 11:52] LABS: Hepatitis B Surface Antigen Nonreactive (Nonreactive)
[2019-06-09 12:10] LABS: Hepatitis C Antibody Negative (Negative)
[2019-06-09 12:13] VITALS: BP 119/65
[2019-06-12 12:59] LABS: Chlamydia trachomatis NAA Negative (Negative); Neisseria gonorrhoeae (GC) NAA Negative (Negative)
== END 2019-06-09 12:10 | disposition home or self-care (01) ==
LOC: ED 07:36
DX: M54.9 Dorsalgia, unspecified (principal); R16.0 Hepatomegaly, not elsewhere classified; K76.0 Fatty (change of) liver, not elsewhere classified
CPT/HCPCS: 36415; 74176; 76705; 80053; 80074; 81003; 83605; 83690; 85025; 86140; 87086; 87491; 87591; 96361; 96374; 96375; 99283; J1885

== ENCOUNTER 2019-09-15 17:09 | Emergency (ER) | payer OTHER ==
--- OUTSIDE RECORDS SUMMARY | 2019-09-15 17:22 | XMS REPORT | Continuity of Care Document ---
:2000 External Reference #:[id number] Author Name Jadon Gutiérrez M.D. Address [address] [place] [id number] Care Team Providers Name Role Phone Eris Soliz M.D. - Pediatrics Care Team Information Title Curative Specialist [facility] Care Team Information Title Curative Specialist [phone] Problems Description No Active Problems Social History Type Date Description Comments Sex Unknown Tobacco Use Start: Unknown Never Smoked Cigarettes ETOH Use Rarely consumes alcohol Tobacco Use Start: Unknown Patient has never smoked Recreational Drug Use Regularly uses Marijuana 1-2 times a a week Tobacco Use Start: Unknown Exposure To Second-Hand Smoke Smoking Status Reviewed: 06/01/19 Exposure To Second-Hand Smoke Allergies, Adverse Reactions, Alerts Description No Known Drug Allergies Medications Description No Active Medications Medications Administered in Office Medication SIG Qnty [...] CPT Code Status Date Vaccine Lot # [id number] Given 07/26/2018 Flu Quadrivalent [id number] 44019 Given 10/06/2017 Flu Quadrivalent [id number] 38121 Given 10/13/2016 Flu Quadrivalent [id number] 45964 Given 10/10/2015 Menactra [id number] 63688 Given 10/10/2015 Flu Quadrivalent [id number] 76548 Given 07/12/2014 Flu Quadrivalent [id number] 20484 Given 08/31/2012 Influenza Virus Vaccine, Split Virus, 6-35 Months Age Intramuscul 46444 Given 08/31/2012 Gardasil 71517 Given 10/13/2011 Gardasil 54718 Given 08/26/2011 Gardasil 38144 Given 08/26/2011 Influenza Virus Vaccine Intranasal 15061 Given 06/11/2010 Influenza Virus Vaccine Intranasal 92700 Given 07/17/2009 Tdap 84781 Given 06/20/2009 Varicella (Chicken Pox) Vaccine 14975 Given 06/20/2009 Influenza Virus Vaccine Intranasal 27365 Given 07/17/2008 Menactra 56961 Given 07/17/2008 Influenza Virus Vaccine Intranasal 75927 Given 07/17/2008 Hepatitis A Pediatric 33843 Given 08/12/2007 Influenza Virus Vaccine, Split Virus, 6-35 Months Age Intramuscul 90124 Given 07/12/2007 Hepatitis A Pediatric 70425 Given 07/12/2007 Influenza Virus Vaccine, Split Virus, 6-35 Months Age Intramuscul 86854 Given 06/10/2004 Polio Injectable 78219 Given 06/10/2004 MMR Vaccine, Live, For Subcutaneous Use 33785 Given 06/10/2004 DTaP Vaccine Younger Than 7 59444 Given 04/08/2000 DTaP Vaccine Younger Than 7 45552 Given 04/08/2000 Hib Vaccine 20321 Given 01/09/2000 Varicella (Chicken Pox) Vaccine 56720 Given 01/09/2000 Polio Injectable 25593 Given 01/09/2000 MMR Vaccine, Live, For Subcutaneous Use 34311 Given 07/09/1999 Hib Vaccine 90078 Given 07/09/1999 DTaP Vaccine Younger Than 7 57499 Given 07/09/1999 Hepatitis B Vaccine Pediatric/Adolescent 46096 Given 03/21/1999 Polio Injectable 96862 Given 03/21/1999 DTaP Vaccine Younger Than 7 95547 Given 03/21/1999 Hib Vaccine 17840 Given 01/20/1999 Polio Injectable 38589 Given 01/20/1999 DTaP Vaccine Younger Than 7 30634 Given 01/20/1999 Hib Vaccine 12810 Given 1998 Hepatitis B Vaccine Pediatric/Adolescent 91145 Given 1998 Hepatitis B Vaccine Pediatric/Adolescent Vital Signs Date Vital Result Comment 06/01/2019 10:44am Body Temperature 97.5 F Heart Rate 64 /min Respiratory Rate 16 /min BP Systolic 142 mmHg BP Diastolic 87 mmHg BP Systolic Recheck 138 mmHg BP Diastolic Recheck 85 mmHg Weight 232.50 lb Weight 105.462 kg Height 74.5 inches 6'2.50" BMI (Body Mass Index) 29.4 kg/m2 02/28/2019 10:43am Body Temperature 98.8 F Heart Rate 100 /min Respiratory Rate 20 /min BP Systolic 120 mmHg BP Diastolic 70 mmHg Weight 233.00 lb Weight 105.689 kg Results Test Acquired Date Facility Test Result H/L Range Note GC/Chlamydia 06/09/2019 [facility] Chlamydia Negative Negative Amplified Rna [address] [place] [address] Neisseria gonorrhoeae (GC) Beth Negative Negative Comp Metabolic Panel 06/09/2019 [facility] Sodium 130 mmol/L Low 135-[address] [place] [address] Potassium 4.1 mmol/L Normal 3.5-5.0 Chloride 99 mmol/L Low 101-111 Co2 Carbon Dioxide 25 mmol/L Normal 22-32 Anion Gap 6 mmol/L Normal 2-11 Glucose 118 mg/dL High 70-100 Blood Urea Nitrogen 10 mg/dL Normal 6-24 Creatinine 0.96 mg/dL Normal 0.67-1.17 BUN/Creatinine Ratio 10.4 Normal 8-20 Calcium 9.4 mg/dL Normal 8.6-10.3 Total Protein 7.3 g/dL Normal 6.4-8.9 Albumin 4.4 g/dL Normal 3.2-5.2 Globulin 2.9 g/dL Normal 2-4 Albumin/Globulin Ratio 1.5 Normal 1-3 Total Bilirubin 1.20 mg/dL High 0.2-1.0 Alkaline Phosphatase 74 U/L Normal 34-104 Alt 263 U/L High 7-52 Ast 150 U/L High 13-39 Egfr Non- 99.9 >60 Egfr 120.8 >60 1 Laboratory test 06/09/2019 [facility] Lipase 11 U/L Normal 11.0-82.[address] [place] [address] C Reactive Protein 139.26 mg/L High <8.01 CBC Auto Diff 06/09/2019 [facility] White Blood 6.4 10^3/uL Normal 3.5-10.[address] [place] [address] Red Blood Count 5.58 10^6/uL High 4.18-5.48 Hemoglobin 15.9 g/dL Normal 14.0-18.0 Hematocrit 45 % Normal 42-52 Mean Corpuscular Volume 81 fL Normal 80-94 Mean Corpuscular Hemoglobin 29 pg Normal 27-31 Mean Corpuscular HGB Conc 35 g/dL Normal 31-36 Red Cell Distribution Width 13 % Normal 10-15 Abs Neutrophils 5.1 10^3/uL Normal 1.5-7.7 Abs Lymphocytes 0.5 10^3/uL Low 1.0-4.8 Abs Monocytes 0.7 10^3/uL Normal 0-0.8 Abs Eosinophils 0.0 10^3/uL Normal 0-0.6 Abs Basophils 0.0 10^3/uL Normal 0-0.2 Abs Nucleated RBC 0.0 10^3/uL Granulocyte % 80.5 % Lymphocyte % 8.5 % Monocyte % 10.3 % Eosinophil % 0.3 % Basophil % 0.4 % Nucleated Red Blood Cells % 0.1 Platelet Count 189 10^3/uL Normal 150-450 Mean Platelet Volume 7.7 fL Normal 7.4-10.4 Laboratory test 06/09/2019 [facility] Lactic Acid 0.7 mmol/L Normal 0.5-2.0 [address] [place] [address] Urinalysis 06/09/2019 [facility] Urine White Trace(0-5/hpf Absent Profile [address] Blood Cell ) [place] [address] Urine Red Blood Cell Absent Absent Urine Bacteria Absent Absent Urine Squamous Epithelial Cell Present Abnormal Absent Urine Color [place]sa Urine Appearance Cloudy Urine Specific [place] 1.024 Normal 1.010-1.030 Urine pH 5.0 Normal 5-9 Urine Urobilinogen Negative Negative Urine Ketones Negative Negative Urine Protein Negative Negative Urine Leukocytes Negative Negative Urine Blood Negative Negative * * Abnormal Negative 3 Urine Nitrite Negative Negative Urine Bilirubin Negative Negative Urine Glucose Negative Negative Hepatitis Acute 06/09/2019 [facility] Hepatitis B Nonreactive Nonreactive Panel [address] [place] [address] Hepatitis B Core IgM Nonreactive Nonreactive Hepatitis A Ab IgM Negative Negative HCV Index 0.02 s/c Hepatitis C Antibody Negative Negative Urine Culture And 06/09/2019 [facility] Urine Culture SEE RESULT [address] [place] [address] GC/Chlamydia 02/28/2019 [facility] Chlamydia Negative Negative Amplified Rna [address] [place] [address] Neisseria gonorrhoeae (GC) Rna Negative Negative .Urinalysis DIP Only 02/28/2019 [facility] Ua Color yellow [address] [place] [address] [phone] Ua Clarity clear Ua Glucose negative Ua Bilirubin negative Ua Ketones negative Ua Specific [place] 1.010 Ua Blood Qual negative Ua PH Test Strip 6.0 Ua Protein negative Ua Urobilinogen negative Ua Nitrate negative Ua Leukocytes negative .Urine Culture 02/28/2019 [facility] Urine Comment negative [address] [place] [address] [phone] 1 Because ethnic data is not always readily [...] 15-29 5 Kidney failure <15 (or dialysis) 2 [facility] Severe Sepsis and Septic Shock Management Bundle Measure requires all lactic acids initially measuring >2.0 mmol/L be repeated. 3 *Ascorbic acid is present which may interfere with detection of blood. 4 SEE RESULT BELOW Name: WEI GIBBONS : [address]: Reji Pena MD Acct: [id number] Unit: [id number] AGE: 18 Location: ED Re06/09/19 SEX: M Status: DEP ER SPEC: [id number] BRANDEN: 06/09/[address] [facility] [address]: Reji Pena MD REQ: [id number] RECD: 06/09/19 STATUS: TITI JACKSON DR: Jadon Gutiérrez MD _ SOURCE: URINE [facility]: ORDERED: Urine Culture Procedure Result Reported Site Urine Culture Final 06/10/19- 1223 ML No Growth (<1,000 CFU/mL) * ML - Main Lab . END OF REPORT DEPARTMENT OF PATHOLOGY, [address] [place] [address] Rivas Camargo M.D. 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 02/28/2019 R36.1 Hematospermia GLORY Jimenes 02/28/2019 N50.89 Other specified disorders of the male GLORY Jimenes genital organs Plan of Treatment Future Appointment(s):10/23/2019 1:45 pm - Eris Soliz M.D. 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 labs as ordered. return to office for enlarging size or involvement. Functional Status Description No Information Available Mental Status Description No Information Available Referrals Description No Information Available
--- OUTSIDE RECORDS SUMMARY | 2019-09-15 17:22 | XMS REPORT | Continuity of Care Document ---
:2000 External Reference #:[id number] Author Name MAGNO Mayo (transmitted by agent of provider Eris Soliz) Address [address] [place] [address] Care Team Providers Name Role Phone Eris Soliz M.D. - Pediatrics Care Team Information Mate Ship [phone] [facility] Care Team Information Mate Ship [phone] Problems Description No Active Problems Social History Type Date Description Comments Sex Unknown Tobacco Use Start: Unknown Never Smoked Cigarettes ETOH Use Rarely consumes alcohol Tobacco Use Start: Unknown Patient has never smoked Recreational Drug Use Regularly uses Marijuana 1-2 times a a week Tobacco Use Start: Unknown Exposure To Second-Hand Smoke Smoking Status Reviewed: 08/01/19 Exposure To Second-Hand Smoke Allergies, Adverse Reactions, Alerts Description No Known Drug Allergies Medications Active Medications SIG Qnty Indications Ordering Provider Date Amoxicillin/Clavulanat 1 tb po bid x 20tabs J01.90 Maya Hardy, e Potassium 10 days M.D. 875-125mg Tablets Medications Administered in Office Medication SIG Qnty [...] CPT Code Status Date Vaccine Lot # [id number] Given 07/26/2018 Flu Quadrivalent [id number] 72316 Given 10/06/2017 Flu Quadrivalent [id number] 52984 Given 10/13/2016 Flu Quadrivalent [id number] 77980 Given 10/10/2015 Menactra [id number] 04203 Given 10/10/2015 Flu Quadrivalent [id number] 73956 Given 07/12/2014 Flu Quadrivalent [id number] 39931 Given 08/31/2012 Influenza Virus Vaccine, Split Virus, 6-35 Months Age Intramuscul 15237 Given 08/31/2012 Gardasil 95826 Given 10/13/2011 Gardasil 39038 Given 08/26/2011 Gardasil 99049 Given 08/26/2011 Influenza Virus Vaccine Intranasal 75252 Given 06/11/2010 Influenza Virus Vaccine Intranasal 70248 Given 07/17/2009 Tdap 14245 Given 06/20/2009 Varicella (Chicken Pox) Vaccine 10935 Given 06/20/2009 Influenza Virus Vaccine Intranasal 49444 Given 07/17/2008 Menactra 13756 Given 07/17/2008 Influenza Virus Vaccine Intranasal 29974 Given 07/17/2008 Hepatitis A Pediatric 30909 Given 08/12/2007 Influenza Virus Vaccine, Split Virus, 6-35 Months Age Intramuscul 61978 Given 07/12/2007 Hepatitis A Pediatric 11343 Given 07/12/2007 Influenza Virus Vaccine, Split Virus, 6-35 Months Age Intramuscul 09045 Given 06/10/2004 Polio Injectable 42516 Given 06/10/2004 MMR Vaccine, Live, For Subcutaneous Use 69573 Given 06/10/2004 DTaP Vaccine Younger Than 7 49252 Given 04/08/2000 DTaP Vaccine Younger Than 7 08393 Given 04/08/2000 Hib Vaccine 10849 Given 01/09/2000 Varicella (Chicken Pox) Vaccine 33168 Given 01/09/2000 Polio Injectable 48490 Given 01/09/2000 MMR Vaccine, Live, For Subcutaneous Use 51919 Given 07/09/1999 Hib Vaccine 32354 Given 07/09/1999 DTaP Vaccine Younger Than 7 14974 Given 07/09/1999 Hepatitis B Vaccine Pediatric/Adolescent 17271 Given 03/21/1999 Polio Injectable 76989 Given 03/21/1999 DTaP Vaccine Younger Than 7 47782 Given 03/21/1999 Hib Vaccine 20748 Given 01/20/1999 Polio Injectable 83306 Given 01/20/1999 DTaP Vaccine Younger Than 7 41818 Given 01/20/1999 Hib Vaccine 42602 Given 1998 Hepatitis B Vaccine Pediatric/Adolescent 09183 Given 1998 Hepatitis B Vaccine Pediatric/Adolescent Vital Signs Date Vital Result Comment 08/01/2019 12:00pm Body Temperature 99.0 F Heart Rate 88 /min Respiratory Rate 16 /min BP Systolic 120 mmHg BP Diastolic 80 mmHg Weight 231.81 lb Weight 105.150 kg O2 % BldC Oximetry 98 % 06/01/2019 10:44am Body Temperature 97.5 F Heart Rate 64 /min Respiratory Rate 16 /min BP Systolic 142 mmHg BP Diastolic 87 mmHg BP Systolic Recheck 138 mmHg BP Diastolic Recheck 85 mmHg Weight 232.50 lb Weight 105.462 kg Height 74.5 inches 6'2.50" BMI (Body Mass Index) 29.4 kg/m2 Results Test Acquired Date Facility Test Result H/L Range Note Laboratory test 08/01/2019 [facility] .Quick Strep Negative finding [address] [place] [address] [phone] Order 08/01/2019 [facility] Pediatrics Oximetry - 98 Pulse or Ear GC/Chlamydia 06/09/2019 [facility] Chlamydia Negative Negative Amplified Rna [address] [place] [address] Neisseria gonorrhoeae (GC) Beth Negative Negative Comp Metabolic Panel 06/09/2019 [facility] Sodium 130 mmol/L Low 135-[address] [place] [address] Potassium 4.1 mmol/L Normal 3.5-5.0 Chloride 99 [...] Egfr 120.8 >60 1 Laboratory test 06/09/2019 [facility] Lipase 11 U/L Normal 11.0-82.[address] [place] [address] C Reactive Protein 139.26 mg/L High <8.01 CBC Auto Diff 06/09/2019 [facility] White Blood 6.4 10^3/uL Normal 3.5-10.[address] [place] [address] Red Blood Count 5.58 10^6/uL High 4.18-5.48 [...] 7.7 fL Normal 7.4-10.4 Laboratory test 06/09/2019 [facility] Lactic Acid 0.7 mmol/L Normal 0.5-2.0 [address] [place] [address] Urinalysis 06/09/2019 [facility] Urine White Trace(0-5/hpf Absent Profile [address] Blood Cell ) [place] [address] Urine Red Blood Cell Absent Absent Urine Bacteria Absent Absent Urine Squamous Epithelial Cell Present Abnormal Absent Urine Color [place] Urine Appearance Cloudy Urine Specific [place] 1.024 Normal 1.010-1.030 Urine pH 5.0 Normal 5-9 Urine Urobilinogen Negative Negative Urine Ketones Negative Negative Urine Protein Negative Negative Urine Leukocytes Negative Negative Urine Blood Negative Negative * * Abnormal Negative 3 Urine Nitrite Negative Negative Urine Bilirubin Negative Negative Urine Glucose Negative Negative Hepatitis Acute 06/09/2019 [facility] Hepatitis B Nonreactive Nonreactive Panel [address] [place] [address] Hepatitis B Core IgM Nonreactive Nonreactive Hepatitis A Ab IgM Negative Negative HCV Index 0.02 s/c Hepatitis C Antibody Negative Negative Urine Culture And 06/09/2019 [facility] Urine Culture SEE RESULT [address] [place] [address] GC/Chlamydia 02/28/2019 [facility] Chlamydia Negative Negative Amplified Rna [address] [place] [address] Neisseria gonorrhoeae (GC) Rna Negative Negative .Urinalysis DIP Only 02/28/2019 [facility] Ua Color yellow [address] [place] [address] [phone] Ua Clarity clear Ua Glucose negative Ua Bilirubin negative Ua Ketones negative Ua Specific [place] 1.010 Ua Blood Qual negative Ua PH Test Strip 6.0 Ua Protein negative Ua Urobilinogen negative Ua Nitrate negative Ua Leukocytes negative .Urine Culture 02/28/2019 [facility] Urine Comment negative [address] [place] [address] [phone] 1 Because ethnic data is not always [...] 5 Kidney failure <15 (or dialysis) 2 [facility] Severe Sepsis and Septic Shock Management Bundle Measure requires all lactic acids initially measuring >2.0 mmol/L be repeated. 3 *Ascorbic acid is present which may interfere with detection of blood. 4 SEE RESULT BELOW Name: WEI GIBBONS : [address]: Reji Pena MD Acct: [id number] Unit: [id number] AGE: 18 Location: ED Re06/09/19 SEX: M Status: DEP ER SPEC: [id number] BRANDEN: 06/09/[address]: Reji Pena MD REQ: [id number] RECD: 06/09/19 STATUS: TITI CHILEL DR: Jadon Gutiérrez MD _ SOURCE: URINE [facility]: ORDERED: Urine Culture Procedure Result Reported Site Urine Culture Final 06/10/19- 1223 ML No Growth (<1,000 CFU/mL) * - Main Lab . END OF REPORT DEPARTMENT OF PATHOLOGY, [address] [place] [address] Rivas Camargo M.D. 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 02/28/2019 R36.1 Hematospermia GLORY Jimenes 02/28/2019 N50.89 Other specified disorders of the male GLORY Jimenes genital organs Plan of Treatment Future Appointment(s):10/23/2019 1:45 pm - Eris Soliz M.D. at [facility]08/01/2019 - MAGNO MayoJ02.9 Acute pharyngitis, iiiumnzxhorF33.90 Acute sinusitis, unspecifiedNew Medication:Amoxicillin/ Clavulanate Potassium 875-125 mg - 1 tb po bid x 10 daysComments:Please start the prescribed antibiotic and complete the whole course. Add probiotics to the diet such as yogurt to decrease likelihood of developing diarrhea. In the mean time:-Try to push lots of fluids - water, diluted juice, broth. This will help thin secretions, calm cough.-Honey is great for helping soothe the throat and calm cough. You can mix it in warm water or before bed give a tablespoon of honey straight off the spoon.- You can try a menthol rub on the chest at night to help calm the cough too (such as vicks)-Humidifier in the bedroom to help moisturize air -Saline nasal spray-Before bed sit in the bathroom with the shower turn on hot to steam up the bathroom and just breath in the steam for 5- 10 minutes to help thin secretions- Extra pillows to make a small incline to help mucus drain-Please blow your nose before laying down for bedFollow up:2-3 days if not better 2 weeks if not completely gone Functional Status Description No Information Available Mental Status Description No Information Available Referrals Description No Information Available
--- NOTE | 2019-09-15 18:20 | ED ---
Head Injury - HPI Summary HPI Summary: The patient is a 18 y/o M presenting to [facility] with a chief complaint of head injury occurring around 1300 today. He reports that he was cutting tree branches when one that was a few inches thick and seven feet long fell from 5- 10 feet from above, hitting him in the occipital head. He now is suffering from a headache rated 7/10 in severity. There was no LOC with the injury, and has been acting as usual. He denies any nausea, vomiting, changes in vision, or weakness. He has not taken any medication prior to arrival. Not on blood thinners. PMHx: hernia. Nonsmoker, no EtOH, marijuana use. Medications reviewed. Allergies noted. - History Of Current Complaint Chief Complaint: EDHeadInjury Stated Complaint: HEAD INJURY PER PT Time Seen by Provider: 09/15/19 18:12 Hx Obtained From: Patient Mechanism Of Injury: Blunt Trauma - head hit with tree branch Onset/Duration: Started Hours Ago - 1300, Still Present Onset of Pain: Immediate Severity Currently: Moderate Severity Initially: Moderate Pain Intensity: 7 Pain Scale Used: 0-10 Numeric Location of Head Injury: Occipital Character: Throbbing Aggravating Factor(s): Other: - nothing Alleviating Factor(s): Other: - nothing Associated Signs And Symptoms: Headache, Other: - Negative: LOC, nausea, vomiting, changes in vision, weakness - Allergies/Home Medications Allergies/Adverse Reactions: Allergies Allergy/AdvReac Type Severity Reaction Status Date / Time No Known Allergies Allergy Verified 09/15/19 17:14 PMH/Surg Hx/FS Hx/Imm Hx Endocrine/Hematology History: Denies: Hx Diabetes Cardiovascular History: Denies: Hx Hypertension GI History: Reports: Other GI Disorders - hernia - Surgical History Surgical History: Yes Surgery Procedure, Year, and Place: hernia as child Infectious Disease History: No Infectious Disease History: Denies: Traveled Outside the [place] in Last 30 Days - Family History Known Family History: Negative: Cardiac Disease, Hypertension, Diabetes - Social History Alcohol Use: None Hx Substance Use: Yes Substance Use Type: Reports: Marijuana Substance Use Comment - Amount & Last Used: occasionally Hx Tobacco Use: No Smoking Status (MU): Never Smoked Tobacco Have You Smoked in the Last Year: No Review of Systems Negative: Other - changes in vision Negative: Vomiting, Nausea Neurological: Other - head injury to occipital; Negative: LOC Positive: Headache. Negative: Weakness All Other Systems Reviewed And Are Negative: Yes Physical Exam - Summary Physical Exam Summary: Constitutional: Well-developed, Well-nourished, Alert. (-) Distressed Skin: Warm, Dry HENT: Normocephalic; Hematoma to occiput without any bony deformity Eyes: Conjunctiva normal Neck: Musculoskeletal ROM normal neck. (-) JVD, (-) Stridor, (-) Tracheal deviation Cardio: Rhythm regular, rate normal, Heart sounds normal; Intact distal pulses; Radial pulses are 2+ and symmetric. (-) Murmur Pulmonary/Chest wall: Effort normal. (-) Respiratory distress, (-) Wheezes, (-) Rales Abd: Soft, (-) tenderness, (-) Distension, (-) Guarding, (-) Rebound Musculoskeletal: (-) Edema Lymph: (-) Cervical adenopathy Neuro: Alert, Oriented x3, Ambulates with normal gait Psych: Mood and affect Normal Triage Information Reviewed: Yes Vital Signs On Initial Exam: Initial Vitals Temp Pulse Resp BP Pulse Ox 98.3 F 99 16 159/94 100 09/15/19 17:11 09/15/19 17:11 09/15/19 17:11 09/15/19 17:11 09/15/19 17:11 Vital Signs Reviewed: Yes Procedures - Sedation Patient Received Moderate/Deep Sedation with Procedure: No Diagnostics - Vital Signs Vital Signs Temp Pulse Resp BP Pulse Ox 09/15/19 17:11 98.3 F 99 16 159/94 100 - Laboratory Lab Statement: Any lab studies that have been ordered have been reviewed, and results considered in the medical decision making process. Head Injury Course/Dx Course Of Treatment: Patient is here 5 hours after a tree branch fell on him in the head. Patient does have an hematoma which has gone down in size per him. Patient had no loss of consciousness, hasn't acting appropriately, no vomiting, no slurred speech, no neurologic deficits. Patient is not on a blood thinner. Given patient's 5 hours of self-monitoring at home and lack of symptoms here, patient does not need emergent CT scan of his brain. Patient was educated on concussion management - Diagnoses Provider Diagnoses: Hematoma of occipital surface of head, Closed head injury Discharge ED - Sign-Out/Discharge Documenting (check all that apply): Patient Departure - Patient will be discharged home. - Discharge Plan Condition: Good Disposition: HOME Patient Education Materials: Concussion (ED), Head Injury (ED) Referrals: Jadon Gutiérrez MD [Primary Care Provider] - 3 Days Additional Instructions: No computer, phone, reading, or TV for the next two days. Take Ibuprofen and Tylenol for pain. Apply ice. Follow up with your primary care provider if the headache persists. Return to the emergency department for any vomiting, acting abnormal, changes in vision, changes in speech, or any other concerning symptoms. - Billing Disposition and Condition Condition: GOOD Disposition: Home - Attestation Statements Document Initiated by Iain: Yes Documenting Scribe: Sveta Valentine Provider For Whom Iain is Documenting (Include Credential): Dr. Scott Mccollum MD Scribe Attestation: Sveta Pollock scribed for Dr. Scott Mccollum MD on 09/15/19 at 1840. Scribe Documentation Reviewed: Yes Provider Attestation: The documentation as recorded by the Sveta moss accurately reflects the service I personally performed and the decisions made by , Dr. Scott Mccollum MD Status of Scribe Document: Viewed
[2019-09-15] MEDS ORDERED: Ibuprofen TAB* 600 MG PO ONE (18:21)
[2019-09-15] MEDS ORDERED: Acetaminophen TAB* 325 MG PO ONE (18:21)
[2019-09-15 18:57] VITALS: BP 136/70
== END 2019-09-15 18:52 | disposition home or self-care (01) ==
LOC: ED 17:09
DX: S09.90XA Unspecified injury of head, initial encounter (principal); S00.03XA Contusion of scalp, initial encounter; W22.8XXA Striking against or struck by other objects, initial encounter; Y93.89 Activity, other specified; Y92.9 Unspecified place or not applicable
CPT/HCPCS: 99282; A9270-GY